=== PATIENT | female | born 1995 | race Two or more races ===

== ENCOUNTER 2025-01-19 20:30 | Emergency (ER) | payer OTHER ==
[~2025-01-19] VITALS: Ht 165.1 cm; Wt 97.0 kg
--- NOTE | 2025-01-19 21:33 | DVH ---
EXAM: XY R SHOULDER 2+ VIEW XRAY, XY R ELBOW 3 VIEW XRAY HISTORY: s/p fall COMPARISON: None TECHNIQUE: Multiple views of the right shoulder and elbow Findings/ IMPRESSION: No acute fracture or dislocation. No significant joint effusion. No destructive osseous lesions. No radiopaque foreign objects.
[2025-01-19] MEDS ORDERED: METH4PAK PO (22:35)
[2025-01-19] MEDS ORDERED: TIZA-142 PO (22:35)
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
[2025-01-20 00:20] VITALS: BP 117/74; RESP 16; TEMP 98.2; O2SAT 99
[2025-01-20] MEDS: IBUPROFEN 800 MG TAB PO ONE (00:22)
[2025-01-20 00:30] VITALS: PULSE 77
== END 2025-01-20 00:28 | disposition home or self-care (01) ==
LOC: ER 20:30 → EDBD 20:30 → ER 01-20 00:28
DX: S46.811A Strain of other muscles, fascia and tendons at shoulder and upper arm level, right arm, initial encounter (principal); S50.01XA Contusion of right elbow, initial encounter; S50.11XA Contusion of right forearm, initial encounter; X58.XXXA Exposure to other specified factors, initial encounter; Y93.89 Activity, other specified; Y92.89 Other specified places as the place of occurrence of the external cause; Y99.8 Other external cause status
CPT/HCPCS: 73030; 73080